=== PATIENT | male | born 1945 | race Caucasian/White ===

== ENCOUNTER → 2024-09-04 | Outpatient (CLI) | payer MEDICARE ==
[2024-09-04 22:06] VITALS: PULSE 72; RESP 20
[2024-09-04 23:00] VITALS: PULSE 58; RESP 12
[2024-09-04 23:30] VITALS: PULSE 99; RESP 16
[2024-09-05] VITALS (10 sets, daily range): PULSE 56–72; RESP 12–22
== END | disposition home or self-care (01) ==
LOC: SLP 20:18
PROVIDERS: ATTEND Internal Medicine Cardiovascular Disease
DX: G47.33 Obstructive sleep apnea (adult) (pediatric) (principal)
CPT/HCPCS: 95810

== ENCOUNTER → 2024-09-18 | Outpatient (CLI) | payer MEDICARE ==
[2024-09-18 22:25] VITALS: PULSE 66; RESP 10
[2024-09-18 23:00] VITALS: PULSE 64; RESP 16
[2024-09-18 23:30] VITALS: PULSE 64; RESP 16
[2024-09-19] VITALS (12 sets, daily range): PULSE 52–68; RESP 10–20
== END | disposition home or self-care (01) ==
LOC: SLP 20:14 → EDUNIT# 20:30
PROVIDERS: ATTEND Internal Medicine Cardiovascular Disease
DX: G47.33 Obstructive sleep apnea (adult) (pediatric) (principal)
CPT/HCPCS: 95811

== ENCOUNTER 2024-10-02 07:18 | Day surgery (SDC) | payer MEDICARE ==
[2024-09-30 15:38] VITALS: BP 134/56; PULSE 52; RESP 18; TEMP 98.2
[2024-09-30 15:38] LABS: BASOPHILS # (AUTO) 0.02 K/uL (0.00-0.20); BASOPHILS % (AUTO) 0.2 % (0.0-5.0); EOSINOPHILS % (AUTO) 1.2 % (0.0-8.0); HEMATOCRIT 45.3 % (42-54); IMMATURE GRANULOCYTE ABSOLUTE 0.04 K/uL (0-1); LYMPHOCYTES % (AUTO) 24.8 % (21.0-51.0); MEAN CORPUSCULAR HEMOGLOBIN 26.3 pg (27.0-33.0); MEAN CORPUSCULAR HGB CONC 33.1 g/dL (32.0-36.0); MEAN CORPUSCULAR VOLUME 79.5 fL (79-99); MONOCYTES # (AUTO) 0.7 K/uL (0.1-1.0); MONOCYTES % (AUTO) 8.6 % (3.0-13.0); NEUTROPHILS # (AUTO) 5.3 K/uL (1.8-7.7); NEUTROPHILS % (AUTO) 64.7 % (40.0-77.0); PLATELET COUNT (AUTO) 144 K/uL (130-400); WHITE BLOOD COUNT (AUTO) 8.2 K/uL (4.8-10.8)
[2024-09-30 15:49] LABS: CREATININE 1.6 mg/dL (0.5-1.3)
[2024-09-30 16:07] LABS: POTASSIUM 6.5 mmol/L (3.5-5.1)
[2024-09-30 17:01] LABS: CREATININE 1.6 mg/dL (0.5-1.3)
[2024-09-30 17:08] LABS: POTASSIUM 6.4 mmol/L (3.5-5.1)
--- NOTE | 2024-09-30 17:30 | NUR ---
report 1611 dr german notified of potassium critical of 6.5/ na 122/ chloride 92. received orders to repeat and do ekg. 1720 dr german informed of potassium 6.4/na 123/chloride 90 and ekg. also informed of med list. received orders to repeat bmp in am. have pt stop spironolactone and stop drinking water and beer for the rest of the day. pt instructed if any s/s of chest discomfort to call 911. pt voiced understanding.
--- NOTE | 2024-09-30 19:01 | EKG ---
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
[2024-10-01 09:47] LABS: CREATININE 1.5 mg/dL (0.5-1.3); POTASSIUM 5.9 mmol/L (3.5-5.1)
--- NOTE | 2024-10-01 10:38 | NUR ---
f/u pt bmp was redrawn. dr german informed of new levels. ok to proceed. pt denied any s/s of discomfort. pt informed to continue to restrict water intake and continue to hold spironolactone. pt voiced understanding
[~2024-10-02] VITALS: Ht 172.7 cm; Wt 85.6 kg
[~2024-10-02 07:18] MED LIST: ASPI-1197 PO; CARV6.25 PO; DAPA5TAB PO; DRON400T7 PO; FURO20TA4 PO; OLME5TAB29 PO; PANT40TA54 PO; PREG100C56 PO; SIMV-46 PO; SPIR25TA6 PO; TADA5TAB5 PO; WARF-57 PO; WARF1TAB83 PO; ferrous sulfate PO; folic acid PO; hydralazine PO; vitamin b 12 PO
[2024-10-02 07:25] VITALS: BP 148/63; PULSE 51; RESP 17; TEMP 97
[2024-10-02] MEDS: 0.9%NACL 1000ML 1,000 ML IV SCH (08:38)
[2024-10-02] MEDS ORDERED: proPOFol 10 MG/ML 20ML VIAL IV ONE (09:11)
[2024-10-02] MEDS ORDERED: phenylEPHRINE HCL 10 MG/ML 1ML VIAL IV ONE (09:11)
[2024-10-02] MEDS ORDERED: SUCCINYLCHOLINE CHLORIDE 20 MG/ML 10 ML VIAL ONE (09:11)
--- NOTE | 2024-10-02 09:11 | EKG ---
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
--- NOTE | 2024-10-02 09:16 | NUR ---
PT SYNCHRONIZED CARDIOVERTED [address] LUJAN PT TOLERATED WELL NAD VSS
--- NOTE | 2024-10-02 09:22 | NUR ---
PT AWAKE SPEAKING WITH STAFF JOSUE COLUNGA.
[2024-10-02 09:25] VITALS: BP 124/79; PULSE 48; RESP 15; TEMP 97.3
[2024-10-02 09:40] VITALS: BP 108/56; PULSE 42; RESP 15
[2024-10-02 09:49] LABS: INR 3.02 (0.85-1.15); PROTHROMBIN TIME 28.7 SEC (9.6-11.6)
[2024-10-02 09:50] LABS: PARTIAL THROMBOPLASTIN TIME 36.2 SEC (26.3-35.5)
[2024-10-02 09:55] VITALS: BP 114/51; PULSE 45; RESP 14
[2024-10-02 10:10] VITALS: BP 103/60; PULSE 48; RESP 15
--- NOTE | 2024-10-02 10:56 | EKG ---
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
--- NOTE | 2024-10-02 11:40 | NUR ---
DR. LUJAN SPOKE WITH PT ABOUT CANCELLING PROCEDURE AND SPEAKING WITH PT ABOUT A LIFE VEST.
--- NOTE | 2024-10-02 11:50 | NUR ---
ORDER FOR LIFE VEST, H&P, FAXED TO CASE MANAGEMENT
--- NOTE | 2024-10-02 12:35 | NUR ---
CASE MANAGEMENT CALLED STATING D/T PTS INSURANCE IT WILL TAKE UP TO 48 HOURS FOR APPROVAL AND PT WOULD HAVE TO BE ADMITTED. I THEN CALLED DR. LUJAN AND TOLD HIM THIS SITUATION WAS TOLD LONG THE "[employer]" IS AWARE THEY CAN DELIVER IT TO THE PATIENTS RESIDENCE. CASE MANAGEMENT DID STATE THE [employer] HAS RECEIVED THE ORDER. THIS WAS EXPLAINED TO THE PATIENT BOTH PT AND DAUGHTER ARE OK WITH DISCHARGE. PT DID REQUEST COPIES OF THE ORDER, COPIES GIVEN TO HIM.
--- NOTE | 2024-10-22 15:18 | PRN ---
Procedure Note Date of procedure: 10/02/2024 Diagnosis: Persistent atypical atrial flutter Procedure: Cardioversion Physician: Bautista Lujan MD The patient was brought to the day patient area in a fasting state. Anesthesia was provided by the anesthesia service. Cardioversion was performed with a synchronized shock at 200 joules resulting in sinus rhythm. The patient tolerated the procedure well. Final diagnosis: Persistent atrial flutter, status post successful cardioversion Disposition: The patient will be discharged later today and will follow up with me in the office in approximately two weeks. BAUTISTA LUJAN MD Oct 22, 2024 15:18
== END 2024-10-02 10:22 | disposition home or self-care (01) ==
LOC: DAH 07:18
PROVIDERS: ATTEND Internal Medicine Cardiovascular Disease
DX: I48.19 Other persistent atrial fibrillation (principal); I48.4 Atypical atrial flutter; I44.0 Atrioventricular block, first degree; I45.2 Bifascicular block; I25.10 Atherosclerotic heart disease of native coronary artery without angina pectoris; Z95.1 Presence of aortocoronary bypass graft; G47.33 Obstructive sleep apnea (adult) (pediatric); I11.0 Hypertensive heart disease with heart failure; Z99.89 Dependence on other enabling machines and devices; I50.32 Chronic diastolic (congestive) heart failure; G25.81 Restless legs syndrome; Z86.73 Personal history of transient ischemic attack (TIA), and cerebral infarction without residual deficits; Z98.890 Other specified postprocedural states; Z98.42 Cataract extraction status, left eye; Z98.41 Cataract extraction status, right eye; Z79.899 Other long term (current) drug therapy
CPT/HCPCS: 83735; 80048 ×3; 85025; 36415 ×3; 93005 ×3; 92960; 85610; 85730; J0330; J7030; J2704; J2371; A4620; A4215; A4222; A4221; A4663; A4216; A4606; A4223 ×3; J3490

== ENCOUNTER 2025-07-06 07:00 | Day surgery (SDC) | payer MEDICARE ==
[2025-07-02 08:52] VITALS: BP 124/47; PULSE 50; RESP 13; TEMP 97.4
[2025-07-02 08:59] LABS: IMMATURE GRANULOCYTE ABSOLUTE 0.05 K/uL (0-1); NUCLEATED RED BLOOD CELLS 0.0 % (0.0-0.19); PLATELET COUNT (AUTO) 128 K/uL (130-400); RED BLOOD CELL COUNT(AUTO) 3.96 MIL/uL (4.50-6.20); RED CELL DISTRIBUTION WIDTH 13.6 % (11.0-15.5); WHITE BLOOD COUNT (AUTO) 5.7 K/uL (4.8-10.8)
[2025-07-02 09:06] LABS: CREATININE 1.4 mg/dL (0.5-1.3); GLOMERULAR FILTR. RATE CALC 51.0 mL/min (>90); GLUCOSE,RANDOM 99.0 mg/dL (70-105); SODIUM SERUM 128.0 mmol/L (136-145); UREA NITROGEN, BLOOD 18.0 mg/dL (7-18)
--- NOTE | 2025-07-05 12:03 | NUR ---
REPORTED BMP RESULTS (SODIUM: 128, POTASSIUM: 5.3) TO DR. LUJAN AND DR. GRAVES. OK TO PROCEED, REPEAT BMP IN AM
[~2025-07-06] VITALS: Ht 172.7 cm; Wt 93.0 kg
[~2025-07-06 07:00] MED LIST changes: +0.9%NACL 1000ML 1,000 ML IV SCH; -ASPI-1197 PO; -CARV6.25 PO; -DAPA5TAB PO; -DRON400T7 PO; -FURO20TA4 PO; -OLME5TAB29 PO; -PANT40TA54 PO; -PREG100C56 PO; -SIMV-46 PO; -SPIR25TA6 PO; -TADA5TAB5 PO; -WARF-57 PO; -WARF1TAB83 PO; -ferrous sulfate PO; -folic acid PO; -hydralazine PO; -vitamin b 12 PO
[2025-07-06 07:10] VITALS: BP 125/56; PULSE 63; RESP 16; TEMP 98.1
--- NOTE | 2025-07-06 07:25 | EKG ---
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
[2025-07-06] MEDS ORDERED: LIDOCAINE HCL MPF 1% 5ML VIAL ONE (08:00)
[2025-07-06 08:18] LABS: CREATININE 1.5 mg/dL (0.5-1.3); GLOMERULAR FILTR. RATE CALC 47.0 mL/min (>90); GLUCOSE,RANDOM 106.0 mg/dL (70-105); SODIUM SERUM 137.0 mmol/L (136-145); UREA NITROGEN, BLOOD 17.0 mg/dL (7-18)
--- NOTE | 2025-07-06 09:05 | NUR ---
PT SYNCHRONIZED CARDIOVERTED [address] LUJAN PT TOLERATED WELL NAD VSS
[2025-07-06 09:25] VITALS: BP 137/67; PULSE 45; RESP 14; TEMP 97.7
[2025-07-06 09:35] VITALS: BP 135/54; PULSE 46; RESP 14
[2025-07-06 09:45] VITALS: BP 136/53; PULSE 46; RESP 15
[2025-07-06 09:55] VITALS: BP 130/57; PULSE 52; RESP 14
[2025-07-06 10:05] VITALS: BP 144/58; PULSE 53; RESP 15
--- NOTE | 2025-07-06 10:10 | NUR ---
BOTH PT AND SPOUSE GIVEN VERBAL AND WRITTEN DISCHARGE INSTRUCTIONS IV REMOVED SITE ASYMPTOMATIC. PT TAKEN OUT VIA WHEELCHAIR SPOUSE DRIVING.
--- NOTE | 2025-07-06 14:25 | EKG ---
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: [facility] : 1945 Requested By: OMID LUJAN Order Number: [id number] Reading MD: Kenrick Crystal Measurements Intervals [place] Rate: 46 P: 91 [place]: 238 QRS: -3 QRSD: 96 T: 12 QT: 446 QTc: 390 Interpretive Statements Sinus bradycardia with 1st degree AV block Low voltage QRS Incomplete right bundle branch block Compared to ECG 07/06/2025 07:10:41 First degree AV block now present Incomplete right bundle-branch block now present Atrial fibrillation no longer present Electronically Signed On 07-06-2025 20:15:18 PRODUCTION CONTROL COORDINATOR by Kenrick Crystal Please click the below link to view image of tracing.
--- NOTE | 2025-07-06 16:12 | PRN ---
Procedure Note Date of procedure: 07/06/2025 Diagnosis: Persistent atrial fibrillation Procedure: Cardioversion Physician: Bautista Lujan MD The patient was brought to the day patient area in a fasting state. Anesthesia was provided by the anesthesia service. Cardioversion was performed with a synchronized shock at 200 joules resulting in sinus rhythm. The patient tolerated the procedure well. Final diagnosis: Persistent atrial fibrillation, status post successful cardi oversion Disposition: The patient will be discharged later today and will follow up with me in the office in approximately two weeks. BAUTISTA LUJAN MD Jul 06, 2025 16:12
== END 2025-07-06 10:25 | disposition home or self-care (01) ==
LOC: DAH 07:00
PROVIDERS: ATTEND Internal Medicine Cardiovascular Disease
DX: I48.19 Other persistent atrial fibrillation (principal); I11.0 Hypertensive heart disease with heart failure; I50.30 Unspecified diastolic (congestive) heart failure; G47.33 Obstructive sleep apnea (adult) (pediatric); Z86.73 Personal history of transient ischemic attack (TIA), and cerebral infarction without residual deficits; Z87.891 Personal history of nicotine dependence; Z98.52 Vasectomy status; Z82.3 Family history of stroke; Z79.899 Other long term (current) drug therapy; Z98.890 Other specified postprocedural states
CPT/HCPCS: 80048 ×2; 85025; 36415 ×2; 93005 ×2; 92960; A4223 ×3; J7030; J2704; J3490; A4620; A4215; A4222; A4221; A4663; A4216; A4606